=== PATIENT | male | born 1960 | race American Indian/Alaskan Native ===

== ENCOUNTER 2017-10-27 05:25 | Emergency (ER) | payer OTHER ==
[2017-10-27] MEDS ORDERED: MOTRIN PO ONE (06:17)
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
--- NOTE | 2017-10-27 06:59 | XRay Report ---
FINAL REPORT EXAM: XR SPINE LUMBOSACRAL 2-3V HISTORY: lower back pain TECHNIQUE: Three views of the lumbar spine were obtained. FINDINGS: There is severe narrowing of the L5-S1 disc with endplate spurring. There is mild narrowing of the L1-L2 and L2-3 disc. The alignment appears normal. There is no evidence of fracture. The SI joints appear normal. The soft tissues are well maintained. IMPRESSION: Multilevel disc degeneration as described particular at the L5-S1 level. No evidence of fracture or soft tissue injury.
[2017-10-27 08:00] VITALS: BP 150/90
== END 2017-10-27 07:00 | disposition home or self-care (01) ==
LOC: ED 05:25
DX: M54.5 Low back pain (principal); I10 Essential (primary) hypertension; J45.909 Unspecified asthma, uncomplicated; V49.09XA Driver injured in collision with other motor vehicles in nontraffic accident, initial encounter; Y93.89 Activity, other specified; Y99.8 Other external cause status; Y92.488 Other paved roadways as the place of occurrence of the external cause
CPT/HCPCS: 70450; 72100